=== PATIENT | female | born 1975 | race Two or more races ===

== ENCOUNTER 2018-11-23 08:40 | Day surgery (SDC) | payer OTHER ==
[~2018-11-23] VITALS: Ht 172.7 cm; Wt 84.4 kg
[2018-11-23] VITALS (11 sets, daily range): BP systolic 116–152; BP diastolic 54–84
[~2018-11-23 08:40] MED LIST: AMITRIPTYLINE25 MG ORAL; LEXAPRO20 MG ORAL; ceFAZolin 1gm IVPB IVPB ONE; celeBREX 200mg Cap **SURGERY PATIENTS ONLY ORAL ONE; oxyCONTIN 20mg tab ORAL ONE
[2018-11-23] MEDS ORDERED: oxyCONTIN 20mg tab ORAL ONE (09:20)
[2018-11-23] MEDS ORDERED: celeBREX 200mg Cap **SURGERY PATIENTS ONLY ORAL ONE (09:20)
[2018-11-23] MEDS ORDERED: Ropivacaine 5mg/ml Vial 30ml INJ ONE (09:23)
[2018-11-23] MEDS ORDERED: EPINEPHrine 1mg/1ml Amp ONE ×2 (09:23→09:29)
[2018-11-23] MEDS ORDERED: LR 1000ml 1,000 ML IVLG SCH (09:26)
[2018-11-23] MEDS ORDERED: Sodium Chloride 10ml vial INJ ONE (09:27)
[2018-11-23] MEDS ORDERED: Lidocaine 1% MPF 10mg/ml 5ml ONE (09:27)
[2018-11-23] MEDS ORDERED: Dexamethasone 4mg/ml vial ONE (09:27)
--- NOTE | 2018-11-23 09:28 | Anethesia Preoperative Eval ---
Anesthesia Pre-op PMH/ROS General Date of Evaluation: Nov 23, 2018 Time of Evaluation: 09:26 Anesthesiologist: Trini ASA Score: ASA 2 Mallampati Score Class I : Soft palate, uvula, fauces, pillars visible Class II: Soft palate, uvula, fauces visible Class III: Soft palate, base of uvula visible Class IV: Only hard plate visible Mallampati Classification: Class II Surgeon: Sixto Diagnosis: R Shoulder Pain Surgical Procedure: R Shoulder Arthroscopy Anesthesia History: none Family History: no anesthesia problems Allergies: Coded Allergies: No Known Allergies (Unverified , 11/23/18) Medications: see eMAR Patient NPO?: Yes Past Medical History Other: obesity - BMI 30 Anesthesia Pre-op Phys. Exam Physician Exam Last Vital Signs Date Time Temp Pulse Resp B/P (MAP) Pulse Ox O2 Delivery O2 Flow Rate FiO2 11/23/18 09:24 Room Air 11/23/18 09:13 97.5 70 18 126/78 99 Constitutional: NAD Neurologic: CN 2-12 intact Cardiovascular: RRR Respiratory: CTA Gastrointestinal: S/NT/ND Airway Exam Mallampati Score: Class II MO: full ROM: full Teeth: missing, intact Anesthesia Pre-op A/P Labs Urine Test Test 11/23/18 07:00 Urine HCG, Qualitative Negative (NEGATIVE) Risk Assessment & Plan Assessment: ASA 2 Plan: GA, SED, Supraclavicular Block Status Change Before Surgery: No Pre-Antibiotics Dru Grams Ancef IV Given Within 1 Hr of Incision: Yes Time Given: 09:51 Bassam Feliz MD Nov 23, 2018 09:28
[2018-11-23] MEDS ORDERED: Ketorolac 30mg Inj ONE (09:29)
[2018-11-23] MEDS ORDERED: Kenalog-40 1ml Vial ONE (09:29)
[2018-11-23] MEDS ORDERED: Bupivacaine w/Epi 0.25% 30ml Vial INJ ONE (09:29)
[2018-11-23] MEDS ORDERED: Meperidine 50mg/ml Inj(FOR RIGORS ONLY) IVP PRN (09:30)
[2018-11-23] MEDS ORDERED: fentaNYL 100 mcg/2 mL IV PRN (09:30)
[2018-11-23] MEDS ORDERED: HYDROcodone/Acetamin 7.5/325 tab ORAL PRN (09:30)
[2018-11-23] MEDS ORDERED: Midazolam 2mg/2ml Inj IVP PRN (09:30)
[2018-11-23] MEDS ORDERED: Atropine Sulfate 0.4mg/ml inj IVP PRN (09:30)
[2018-11-23] MEDS ORDERED: Ketorolac 30mg Inj IV PRN ×2 (09:30)
[2018-11-23] MEDS ORDERED: DiphenhydrAMINE 50mg/ml Inj IVP PRN (09:30)
[2018-11-23] MEDS ORDERED: Hydromorphone 0.5mg/0.5ml inj IVP PRN (09:30)
[2018-11-23] MEDS ORDERED: oxyCODONE HCL/Acetaminophen 5/325mg ORAL PRN (09:30)
[2018-11-23] MEDS ORDERED: LORazepam Inj 2mg/ml 1ml IV PRN (09:30)
[2018-11-23] MEDS ORDERED: HYDROcodone/Acetamin 5/325 tab ORAL PRN ×2 (09:30→11:15)
[2018-11-23] MEDS ORDERED: LR 1000ml ONE (09:30)
[2018-11-23] MEDS ORDERED: Metoclopramide 10mg/2ml Inj IVP PRN (09:30)
[2018-11-23] MEDS ORDERED: Labetalol 5mg/ml 20ml vial IV PRN (09:30)
[2018-11-23] MEDS ORDERED: NS Irrig 4000ml IRRIG ONE (09:30)
--- NOTE | 2018-11-23 10:40 | Immediate Post-Op Evaluation ---
Immediate Post-Op Evalulation Immediate Post-Op Evalulation Procedure: R Shoulder Arthroscopy Date of Evaluation: Nov 23, 2018 Time of Evaluation: 11:27 IV Fluids: 1000 LR Blood Products: 0 Estimated Blood Loss: 10 Urinary Output: 0 Blood Pressure Systolic: 149 Blood Pressure Diastolic: 54 Pulse Rate: 98 Respiratory Rate: 16 O2 Sat by Pulse Oximetry: 100 Temperature (Fahrenheit): 97.8 Pain Score (1-10): 2 Nausea: No Vomiting: No Complications 0 Patient Status: awake, reacts, patent, none Hydration Status: adequate Dru Grams Ancef IV Given Within 1 Hr of Incision: Yes Time Given: 09:51 Bassam Feliz MD Nov 23, 2018 10:40
--- NOTE | 2018-11-23 10:41 | 48 Hour Post Anesthesia Eval ---
Post Anesthesia Evaluation Procedure: R Shoulder Arthroscopy Date of Evaluation: Nov 23, 2018 Time of Evaluation: 13:34 Blood Pressure Systolic: 123 0: 56 Pulse Rate: 78 Respiratory Rate: 18 Temperature (Fahrenheit): 98.2 O2 Sat by Pulse Oximetry: 100 Airway: patent Nausea: No Vomiting: No Pain Intensity: 2 Hydration Status: adequate Cardiopulmonary Status: Stable Mental Status/LOC: patient returned to baseline Follow-up Care/Observations: 0 Post-Anesthesia Complications: 0 Follow-up care needed: ready to discharge Bassam Feliz MD Nov 23, 2018 10:41
--- NOTE | 2018-11-23 11:08 | Operative Note - PDOC ---
Operative Note Operative Note Pre-op Diagnosis: right shoulder impingement Procedure: see op report Post-op Diagnosis: same as pre-op plus Operative Findings: consistent w/pre-op dx studies Anesthesia: regional Specimen: none Complications: none Condition: stable Estimated Blood Loss: none Implant(s) used?: No Bay Henson MD Nov 23, 2018 11:08
--- NOTE | 2018-11-23 11:08 | Pre-Procedure Note/Attestation ---
Pre-Procedure Note/Attestation Complete Prior to Procedure Planned Procedure: right Procedure Narrative: shoulder arthroscopy, sad Indications for Procedure Pre-Operative Diagnosis: right shoulder impingement Attestation I attest that I discussed the nature of the procedure; its benefits; risks and complications; and alternatives (and the risks and benefits of such alternatives ), prior to the procedure, with the patient (or the patient's legal accounts receivable representative). I attest that, if there was a reasonable possibility of needing a blood transfusion, the patient (or the patient's legal accounts receivable representative) was given the [facility] standardized written summary, pursuant to the [place] Blood Safety Act ([place] Health and Safety Code # 1645, as amended). I attest that I re-evaluated the patient just prior to the surgery and that there has been no change in the patient's H&P, except as documented below: Bay Henson MD Nov 23, 2018 11:08
[2018-11-23] MEDS ORDERED: D5 1/2NS 1,000 ML IV SCH (11:15)
[2018-11-23] MEDS ORDERED: Tylenol #3 tab (300mg/30mg) ORAL PRN (11:15)
[2018-11-23] MEDS ORDERED: HYDROmorphone 1mg/ml Carpuject SUBQ PRN (11:15)
--- NOTE | 2018-11-24 00:15 | Operative Note - Dictated ---
DATE OF OPERATION: 11/23/2018 PREOPERATIVE DIAGNOSIS: Right shoulder impingement syndrome. POSTOPERATIVE DIAGNOSES: 1. Partial articular-sided rotator cuff tear. 2. Partial tear along the head of biceps tendon. 3. Impingement/bursitis. PROCEDURES: 1. Right shoulder arthroscopy. 2. Extensive intraarticular debridement. 3. Right shoulder subacromial decompression bursectomy. SURGEON: Bay Henson M.D. ANESTHESIA: Interscalene with general. INDICATION FOR PROCEDURE: The patient is a pleasant female, who has had progressive right shoulder pain. She failed conservative treatment and elected to undergo right shoulder diagnostic arthroscopy with subacromial decompression bursectomy. Risks, limitations, expectations, and complications of the procedure were discussed in detail. All questions were addressed. DESCRIPTION OF PROCEDURE: After informed consent was obtained, the patient was brought to the operative room and placed under interscalene general anesthesia. Ancef was administered. Right shoulder was prepped and draped in a sterile manner. Time-out was performed. Posterolateral stab incision was then made. Trocar was introduced into the glenohumeral joint. There was some fraying along the insertion of the biceps tendon and along the articular-sided of the rotator cuff. Shaver was then placed in the rotator interval. Partial debridement of the rotator cuff and biceps tendon was performed. Once that was done, camera was placed in the subacromial space. There was hypertrophic bursal tissue, which was removed to identify the anterolateral aspect of the acromion. Once the CA ligament was released, acromioplasty was started from lateral to medial and completed from posterior to anterior. Once that was done, the bursectomy is completed posteriorly. The instrument was removed. Portal site was closed with 3-0 Monocryl sutures. ESTIMATED BLOOD LOSS: None. COMPLICATIONS: None. SPECIMENS: None. IMPLANTS: None. Bay Henson M.D. DR: NEYDA JOB#: [id number] CC: ENDER
== END 2018-11-23 12:50 | disposition home or self-care (01) ==
LOC: SUR 08:40
DX: M75.41 Impingement syndrome of right shoulder (principal); S46.211A Strain of muscle, fascia and tendon of other parts of biceps, right arm, initial encounter; X58.XXXA Exposure to other specified factors, initial encounter; Y92.9 Unspecified place or not applicable
CPT/HCPCS: 29823; 81025; J0171; J0690; J1100; J1885; J2250; J2405; J2795; J3301; 94003; 94150